=== PATIENT | female | born 1965 | race Caucasian/White ===

== ENCOUNTER 2023-09-23 15:02 | Emergency (ER) | payer OTHER, SELFPAY ==
[2023-09-23 15:09] VITALS: BP 141/83; PULSE 66; RESP 16; TEMP 36.8; O2SAT 96
--- NOTE | 2023-09-23 15:32 | ED.URI ---
HPI - URI/Sore Throat General Chief Complaint: Upper Respiratory Infection Stated Complaint: sore throat Time Seen by Provider: 09/23/23 15:28 Source: patient and RN notes reviewed Mode of arrival: ambulatory Limitations: no limitations History of Present Illness HPI Narrative: 58-year-old female presents with concern for 6 day history of sore throat. Reports her niece had strep throat that she was around recently. She reports she began feeling ear pain and pressure with itching today. Denies nasal congestion or rhinorrhea. Denies fever, body aches, chills, sweats MD elicited complaint: sore throat Related Data Allergies Allergy/AdvReac Type Severity Reaction Status Date / Time No Known Allergies Allergy Verified 09/23/23 15:18 Review of Systems Review of Systems: CONSTITUTIONAL: Denies malaise, chills, sweats, or fever. EYES: Denies visual changes, redness, or discharge. ENT: Denies rhinorrhea, congestion, sinus pain. Reports otalgia and sore throat. CARDIOVASCULAR: Denies chest pain, palpitations, or edema. RESPIRATORY: Denies cough. Denies dyspnea. GASTROINTESTINAL: Denies abdominal pain, nausea, vomiting, diarrhea SKIN: Denies rash or itching. MUSCULOSKELETAL: Denies myalgia. NEUROLOGIC: Denies headache. All systems reviewed & are unremarkable except as noted in HPI and below PMFSH Comments At time of signature, agree with nursing past medical, surgical, social and family history. There is no relevant family history pertinent to the presenting complaint Exam Narrative: GENERAL: Well-appearing, well-nourished, and in no acute distress. HEAD: Normocephalic EYES: PERRLA, conjunctivae clear ENT: Nares clear. Mucous membranes moist. TM yellow dull light reflex bilaterally; no tragal tenderness. Oropharynx erythematous without lesions. Tonsils not enlarged and without exudate, no drooling, no hoarseness, no trismus, uvula midline. NECK: Supple. No lymphadenopathy CHEST: Clear to auscultation, breath sounds equal. No wheezing, rhonchi, rales, or stridor. No respiratory distress, speaks in full sentences. HEART: Regular rate and rhythm. No murmur heard. SKIN: Warm, dry, no rash. NEURO: Alert and oriented x3. PSYCH: Normal mood and affect Course Course Emergency Course: Patient is aware of diagnosis, understands and agrees to treatment plan. Anticipatory guidance given. Patient agrees to follow-up as directed and is aware of reasons to seek care at the emergency department. Portions of this record may have been created with voice recognition software Level of Care: Express Care Visit Vital Signs Vital signs: Vital Signs Temperature 98.2 F 09/23/23 15:09 Pulse Rate 66 09/23/23 15:09 Respiratory Rate 16 09/23/23 15:09 Blood Pressure 141/83 H 09/23/23 15:09 Pulse Oximetry 96 09/23/23 15:09 Oxygen Delivery Room Air 09/23/23 15:09 Temperature 98.2 F 09/23/23 15:09 Pulse Rate 66 09/23/23 15:09 Respiratory Rate 16 09/23/23 15:09 Blood Pressure 141/83 H 09/23/23 15:09 Pulse Oximetry 96 09/23/23 15:09 Oxygen Delivery Room Air 09/23/23 15:09 Reviewed. MDM - URI/Sore Throat MDM Narrative Medical decision making narrative: Differential diagnosis considered: [place]es virus, strep pharyngitis, allergic rhinitis, upper respiratory tract infection, sinusitis, rhinosinusitis, nasopharyngitis. viral pharyngitis, otitis media, otitis externa, pneumonia, bronchitis, viral cough syndrome, viral syndrome, and influenza. Exam findings show no acute concerns or changes; patient is non-toxic appearing and is in no distress. Patient is appropriate for outpatient treatment and follow-up. Lab Data Attestation: I reviewed the patient's lab results. Labs: Strep Screen Positive Group A Strep *(Reference Range: Negative)* Critical Care Time Critical Care Time Critical Care Time: No Discharge Plan Discharge Clinical Im
== END 2023-09-23 15:40 | disposition home or self-care (01) ==
PROVIDERS: Emergency Provider Nurse Practitioner; PCP Nurse Practitioner Family
DX: J02.0 Streptococcal pharyngitis (principal)
CPT/HCPCS: 87880; 99213; G0463

== ENCOUNTER 2024-01-11 14:15 | Emergency (ER) | payer OTHER, SELFPAY ==
[2024-01-11 14:30] VITALS: BP 151/75; PULSE 82; RESP 16; TEMP 36.8; O2SAT 98
--- NOTE | 2024-01-11 14:46 | ED.SKABFB ---
HPI - Skin/Abscess/Foreign Bdy General Chief complaint: Skin/Abscess/Foreign Body Stated complaint: Insect Bite Source: patient Mode of arrival: ambulatory Limitations: no limitations History of Present Illness HPI narrative: 58-year-old female presented for complaint of redness, swelling, and bumps to the left index and middle fingers, left hand, and right upper arm. First noticed the lesion yesterday. Endorses itching. She applied PRID and neosporin. Denies lip, tongue, or throat swelling, shortness of breath or wheezing. Denies changes to soap, detergent, lotion, or any other exposures. No one else in the house or any contacts with similar symptoms. states she thinks a spider bit her. Related Data Allergies Allergy/AdvReac Type Severity Reaction Status Date / Time No Known Allergies Allergy Verified 09/23/23 15:18 Review of Systems Review of Systems: CONSTITUTIONAL: Denies body aches, fever, chills, or sweats. EYES: Denies visual changes, redness, or discharge. ENT: Denies rhinorrhea, congestion CARDIOVASCULAR: Denies chest pain, palpitations, or edema. RESPIRATORY: Denies cough or dyspnea. SKIN: red bumps to left hand and right arm MUSCULOSKELETAL: Denies back pain, joint pain, or myalgia. NEUROLOGIC: Denies numbness, tingling, or weakness. PMFSH Comments At time of signature, I have reviewed and agree with nursing past medical, surgical, social and family history unless otherwise noted. Please see nursing chart for further information. There is no relevant family history pertinent to the presenting complaint Exam Narrative: GENERAL: Well-appearing EYES: conjunctivae clear, and EOMI. ENT: Mucous membranes moist. Oropharynx without edema, erythema or lesions. CHEST: Clear to auscultation. HEART: Regular rate and rhythm. SKIN: Warm, dry. Left 2nd and 3rd digit middle phalanxes with 1 cm erythematous round lesions with papules at center. ulnar aspect of the left hand with 1.5 cm diameter erythematous raised round lesion. No active drainage. Sites were tender. Right upper arm with approx <0.5 cm diameter slightly raised red lesion, no drainage or induration. Full ROM of hands/finger. CMS intact. NEURO: Alert and oriented x3. Course Course Emergency Course: Patient is aware of diagnosis, understands and agrees to treatment plan. Anticipatory guidance given. Patient agrees to follow-up as directed and is aware of reasons to seek care at the emergency department. Portions of this record may have been created with voice recognition software Level of Care: Express Care Visit Vital Signs Vital signs: Vital Signs Temperature 98.3 F 01/11/24 14:30 Pulse Rate 82 01/11/24 14:30 Respiratory Rate 16 01/11/24 14:30 Blood Pressure 151/75 H 01/11/24 14:30 Pulse Oximetry 98 01/11/24 14:30 Oxygen Delivery Room Air 01/11/24 14:30 Temperature 98.3 F 01/11/24 14:30 Pulse Rate 82 01/11/24 14:30 Respiratory Rate 16 01/11/24 14:30 Blood Pressure 151/75 H 01/11/24 14:30 Pulse Oximetry 98 01/11/24 14:30 Oxygen Delivery Room Air 01/11/24 14:30 Reviewed MDM - Skin/Abscess/Foreign Bdy MDM Narrative Medical decision making narrative: Discussed physical exam findings, reviewed Rxs. Advised supportive measures and signs/symptoms to go to the ER. Pt is appropriate for outpt treatment and f/u. Instructed patient to go to nearest ER immediately for any worsening symptoms including but not limited to: fever, spreading rash, pain, sore throat, headache, dizziness, chest pain, trouble breathing, or any symptoms concerning to the patient. Differential Diagnosis Differential diagnosis: Likely abscess of skin or subcutaneous tissue, viral exanthem, dermatophytosis, urticaria, herpes zoster, allergic reaction to drug, cellulitis, eczema, insect bites, impetigo and contact dermatitis Discharge Plan Discharge Clinical Impression: Dermatitis Patient Disposition: [facility]
== END 2024-01-11 14:53 | disposition home or self-care (01) ==
PROVIDERS: Emergency Provider Nurse Practitioner Family
DX: L30.9 Dermatitis, unspecified (principal); K76.0 Fatty (change of) liver, not elsewhere classified
CPT/HCPCS: 99213; G0463

== ENCOUNTER 2024-04-10 14:35 | Emergency (ER) | payer OTHER, SELFPAY ==
[2024-04-10 14:40] VITALS: BP 137/80; PULSE 83; RESP 18; TEMP 37.2; O2SAT 100
--- NOTE | 2024-04-10 14:54 | ED.WOUNDLAC ---
HPI - Wound/Laceration General Chief Complaint: Wound/Laceration Stated Complaint: Skin Sore/Right Leg History of Present Illness HPI narrative: Patient presents with redness and irritation to her right lower extremity. Patient states this started out as to insect bites which she thinks she has scratched and now she is concerned for infection. Related Data Allergies Allergy/AdvReac Type Severity Reaction Status Date / Time No Known Allergies Allergy Verified 04/10/24 14:53 Review of Systems Review of Systems: CONSTITUTIONAL: Denies fever, chills, or sweats. EYES: Denies visual changes, redness, or discharge. ENT: Denies rhinorrhea, congestion, sore throat, or otalgia. CARDIOVASCULAR: Denies chest pain, palpitations, or edema. RESPIRATORY: Denies cough or dyspnea. GASTROINTESTINAL: Denies abdominal pain, nausea, vomiting, or diarrhea. GENITOURINARY: Denies dysuria or hematuria. SKIN: Denies rash or itching. MUSCULOSKELETAL: Denies back pain, joint pain, or myalgia. NEUROLOGIC: Denies headache, numbness, or weakness. PSYCHIATRIC: Denies anxiety or depression. PMFSH Comments At time of signature, agree with nursing past medical, surgical, social and family history. There is no relevant family history pertinent to the presenting complaint Exam Narrative: GENERAL: Well-appearing, well-nourished, and in no acute distress. HEAD: Normocephalic, atraumatic. EYES: PERRLA and EOMI. ENT: Nares clear, no rhinorrhea or epistaxis. Mucous membranes moist. NECK: Supple. CHEST: Clear to auscultation. No respiratory distress. HEART: Regular rate and rhythm. No murmur heard. Normal peripheral pulses. ABDOMEN: Soft, nontender, nondistended, normal active bowel sounds. EXTREMITIES: Normal range of motion. No edema.Lower extremity: RIGHT HIP EXAM - SKIN INTACT. NO BRUISING, REDNESS OR SWELLING. NO INGUINAL MASSES OR LYMPHADENOPATHY. GENERALIZED FEMUR AND HIP TENDERNESS. PATIENT HOLDING HIP IN EXTERNAL ROTATION WITH SLIGHT FLEXION OF KNEE. NO BUTTOCK OR SI JOINT TENDERNESS. ROM LIMITED DUE TO PAIN. NORMAL FEMORAL PULSES. BACK EXAM - NO VERTEBRAL POINT SPECIFIC TENDERNESS OR STEP OFFS. NORMAL ROM OF BACK. NORMAL FLEXION AND EXTENSION OF BACK. NO CVA TENDERNESS. LEG EXAM - NO CALF OR ANKLE SWELLING, DISCOLORATION. NORMAL FOOT SENSATION AND CAP REFILL. NORMAL DP PULSE. . 8x9 area of redness consisternt with cellullitis to right lower leg 2 puncture wounds to center consistent with insect bites. SKIN: Warm, dry, no rash. NEURO: No focal deficits. Alert and oriented x3. Parker Coma Scale Eye Opening: Spontaneous 4 [place] Coma Scale Motor: Obeys Commands 6 Parker Coma Scale Verbal: Oriented 5 [place] Coma Scale Total 15 Course Course Level of Care: Express Care Visit Vital Signs Vital signs: Vital Signs Temperature 37.2 C 04/10/24 14:40 Pulse Rate 83 04/10/24 14:40 Respiratory Rate 18 04/10/24 14:40 Blood Pressure 137/80 04/10/24 14:40 Pulse Oximetry 100 04/10/24 14:40 Oxygen Delivery Room Air 04/10/24 14:40 Temperature 37.2 C 04/10/24 14:40 Pulse Rate 83 04/10/24 14:40 Respiratory Rate 18 04/10/24 14:40 Blood Pressure 137/80 04/10/24 14:40 Pulse Oximetry 100 04/10/24 14:40 Oxygen Delivery Room Air 04/10/24 14:40 Please PAPI schedule a followup visit with your personal physician for further evaluation and treatment. Including recheck and discussion of your blood pressure. If your symptoms persist, change or worsen significantly before you can contact your personal physician then please, without delay, go to the emergency department for further evaluation Discharge Plan Discharge Clinical Impression: Insect bite, Cellulitis Patient Disposition: Home, Self-Care Condition: Stable Instructions: Antibiotic Form, Insect Bite or Sting (ED) Additional Instructions: monitor area for increase in size, streaking or drainage wash area with warm soapy water two times daily follow
== END 2024-04-10 15:00 | disposition home or self-care (01) ==
PROVIDERS: Emergency Provider Nurse Practitioner Family; PCP Nurse Practitioner Family
DX: S80.861A Insect bite (nonvenomous), right lower leg, initial encounter (principal); L03.115 Cellulitis of right lower limb; W57.XXXA Bitten or stung by nonvenomous insect and other nonvenomous arthropods, initial encounter
CPT/HCPCS: 99213; G0463

== ENCOUNTER 2025-03-02 10:18 | Emergency (ER) | payer OTHER, SELFPAY ==
--- NOTE | ~2025-03-02 | XR_ITS ---
EXAMINATION: XR chest 2V 03/02/2025 11:30 INDICATION: Cough PROCEDURE: 2 view chest COMPARISON: No prior studies for comparison. FINDINGS: The lungs are clear. The cardiomediastinal silhouette is within normal limits. There are no pleural effusions. There is no pneumothorax suspected. IMPRESSION: 1: NO ACUTE CARDIOPULMONARY DISEASE. Reviewed, dictated and finalized at location A.
--- OUTSIDE RECORDS SUMMARY | 2025-03-02 10:25 | XMS_ITS | Encounter Summary ---
Author Organization [facility] Address [address] [place] [id number] Care Team Providers Care Shredder Picker Name Role Phone [facility] Primary Care Provider + Encounter Details Date Type Department Care Team (Late st Contact Info) Description 05/13/2024 [employer] Message Enc [facility] Family & Internal Medicine [facility] [id number] [place] [phone] Rishi, [facility] Provider salvador Social History Tobacco Use Types Packs/Day Years Used Date Smoking Tobacco: Never Passive Smoke Exposure: Never Smokeless Tobacco: Never Alcohol Use Standard Drinks/Week Comments Yes 4 (1 standard drink = 0.6 oz pur e alcohol) occasionally PHQ-2 Answer Date Recorded Patient Health Questionnaire-2 Score 0 03/16/2024 Comments No Sex and Gender Information Value Date Recorded Sex Assigned at Not on file Legal Sex Female 8:31 PM CDT Gender Identity Not on file Sexual Orientation Not on file documented as of this encounter Plan of Treatment Not on file documented as of this encounter Visit Diagnoses Not on filedocumented in this encounter Additional Health Concerns Assessment Noted Time PHQ-9 Depression Total Score: 7 03/16/20 24 2:24 PM CDT documented as of this encounter Care Teams Shredder Picker Relationship Specialty Start Date End Date Yesenia Reyna FNP-BC [id number] [facility], [address] [place] [address] PCP - General Nurse Practitioner Family 08/07/23 documented as of this encounter
--- OUTSIDE RECORDS SUMMARY | 2025-03-02 10:25 | XMS_ITS | Encounter Summary ---
Author Organization [facility] Address [address] [place] [address] Care Team Providers Care Paid Internship Name Role Phone Yesenia Reyna Primary Care Provider + Encounter Details Date Type Department Care Team (Late st Contact Info) Description 04/19/2024 [employer] Message Enc [facility] Medical [facility] Family & Internal Medicine [address] [phone] Yesenia Reyna FNP-BC [id number] [place] [address] [address] [place] [address] Foot infection Social History Tobacco Use Types Packs/Day Years [...] on file documented as of this encounter Progress Notes * DONIS Mcdermott - 04/19/2024 11:35 AM CDT Try taking the doxycycline with crackers to see if this is better tolerated. I would recommend still elevating her foot at much as possible. She could try OTC benadryl to see if this helps with some of the inflammation (and itching if present) since this was thought to be from a spider bite. I would recommend she be reevaluated in the walk-in or appointment with me tomorrow to look at it. It is hard to accurately treat without seeing it. * Aviva Webber MA - 04/19/2024 11:00 AM CDT Please advise documented in this encounter Plan of Treatment Not on file documented as of this encounter Visit Diagnoses Not on filedocumented in this encounter Additional Health Concerns Assessment Noted Time PHQ-9 Depression Total Score: 7 03/16/20 24 2:24 PM CDT documented as of this encounter Care Teams Paid Internship Relationship Specialty Start Date End Date Yesenia Reyna FNP-BC [id number], [address] [place] [address] PCP - General Nurse Practitioner Family 08/07/23 documented as of this encounter
--- OUTSIDE RECORDS SUMMARY | 2025-03-02 10:25 | XMS_ITS | Clinical Summary ---
Author Organization [facility] Address Formerly [facility], [facility] [place] [address] Care Team Providers Care Marketing And Promotions Manager Name Role Phone Manuela Perez Alissa [facility] Primary Care Provider + Allergies Active Allergy Reactions Criticality Noted Date Comments Latex Rash Low 11/17/2018 Medications Cholecalciferol (VITAMIN D) 2000 units Tab Activ e Cinnamon 500 MG Tab Take by mouth daily. 6 Active Garlic 10 MG Cap Active Juan, Zingiber officinalis, (JUAN EXTRACT) 250 MG Cap 6 Active multi vitamin/mineral s (MULTI-VITAMIN DAILY) tablet Take 1 tablet by mouth daily. 4 Active vitamin E 400 UNIT capsule Active Turmeric 450 MG Cap Take by mouth daily. 6 Active ibuprofen 200 MG tablet Take 1 tablet (200 mg total) by mouth every 6 (six) hours as needed for Pain. Active B complex-C Cap capsule Take 1 capsule by mouth daily. Active B IJSMPAX-O-VROYA ACID ER OR 3 Active Misc Natural Products (GINSENG COMPLEX OR) 3 Active Milk Thistle 250 MG Cap 3 Active Ginkgo Biloba Extract (GNP GINGKO BILOBA EXTRACT) 60 MG Cap 3 Active Biotin (BIOTIN 5000) 5 MG Cap 3 Active CPAP DEVICE, DME,Indications :Obstructive sleep apnea syndrome 1 Device by Does not apply route nightly. 1 Device 4 Active triamcinolone (KENALOG) 0.1 % cream Apply topically 2 (two) times daily. 4 Active aspirin 81 MG chewable tablet Chew 1 tablet (81 mg total) by mouth daily. Takes at night Active semaglutide-nestor ght management (WEGOVY) 0.25 mg/dose injection (PEN)Indication s:Weight Loss Inject 0.25 mg into the skin once a week. Indications: Weight Loss 2 mL 2 Active cephALEXin (KEFLEX) 500 MG capsule take 1 capsule by mouth every 8 hours for 7 days 4 Active Active Problems Problem Noted Date Diagnosed Date Bilateral chronic knee pain 12/17/2023 Assessment & Plan (12/17/2023 9:01 PM ONLINE ADVERTISING ANALYST): 09/2023 X-ray Rt knee - No apparent acute fracture or dislocation. Lesion in the medial femoral condyle could be consistent with osteochondral injury. Could be further evaluated with MRI if clinically indicated. 09/2023 PT improvement pain. Class 2 severe obesity due t o excess calories with serious comorbidity and body mass index (BMI) of 37.0 to 37.9 in adult 12/17/2023 Obstructive sleep apnea syndrome 12/17/2023 Assessment & Plan (12/17/2023 9:04 PM ONLINE ADVERTISING ANALYST): 09/2023 home sleep study - moderate KEVIN, AHI 21.7/hr, ave sat 93%, HR 54; 11/2023 titration study - Some sleep onset central apneas were noted as pressures increased. There was minimal sleep time at the final pressure and it is unsure if the pressure would be completely optimal. I recommend initiation of CPAP therapy at home with settings of 5.0 cm - 20.0 cm h2O with heated humidity. Pending cpap device Chronic pain of right hip 09/23/2023 Assessment & Plan (12/17/2023 9:00 PM ONLINE ADVERTISING ANALYST): 09/2023 x-ray No appreciable acute fracture or dislocation. Calcifications along the lateral aspect of the right femoral greater trochanters suggesting chronic calcific tendinosis. Arthritis 09/16/2023 BMI 37.0-37.9, adult 05/02/2016 Chronic GERD 05/02/2016 Elevated blood pressure read ing without diagnosis of hypertension 04/25/2016 Assessment & Plan (12/17/2023 8:56 PM ONLINE ADVERTISING ANALYST): 12/17/23 Stable off medications. Fatty liver 04/25/2016 Assessment & Plan (12/17/2023 8:59 PM ONLINE ADVERTISING ANALYST): 10/22/23 abd US - Mild fatty infiltration of the liver without focal mass. Hepatic and portal veins are patent.. Common bile duct measures.3.4 mm. Fib-4 1.26 (SALVATORE 0- 1) not advanced Diverticulosis of colon 11/23/2012 Resolved Problems Problem Noted Date Diagnosed Date Resolved Date Prolapsed urethral mucosa 06/23/2022 Bug bite with infection 04/25/201602/2023 Diverticulitis of colon 08/24/201211/20 Encounter for preventive health examination 06/03/2012 06/29/2020 Immunizations Immunization Administration Dates Next Due Fluzone 6 Months+ Quad (0.5 mL Prefilled Syringe ) 11/17/2018 Tdap (Generic) 08/13/2016 Family History Medical History Relation Comments Arthritis Father Cancer Father skin Diabetes Father Hyperlipidemia Father Hypertension Father Breast Cancer Maternal Aunt 1 Breast Cancer Maternal Aunt 2 Heart Disease Maternal Grandfather Macular Degeneration Maternal Grandfather Cancer Mother colon Stroke Mother Cancer Paternal Grandfather lung Cancer Paternal Grandmother uterine Relation Status Comments Father Maternal Aunt 1 Maternal Aunt 2 Maternal Grandfather Mother Paternal Grandfather Paternal Grandmother Social History Tobacco Use Types Packs/Day Years Used Date Smoking Tobacco: Never Passive Smoke Exposure: Never Smokeless Tobacco: Never Tobacco Cessation:Counseling Given: No Alcohol Use Standard Drinks/Week Comments Yes 4 (1 standard drink = 0.6 oz pur e alcohol) occasionally PHQ-2 Answer Date Recorded Patient Health Questionnaire-2 Score 0 03/16/2024 Comments No Sex and Gender Information Value Date Recorded Sex Assigned at Not on file Legal Sex Female 8:31 PM CDT Gender Identity Not on file Sexual Orientation Not on file Last Filed Vital Signs Vital Sign Reading Time Taken Comments Blood Pressure 120/83 04/14/2024 1:21 PM CDT Pulse 72 04/14/2024 1:21 PM CDT Temperature 36.5 C (97.7 F) 04/14/2024 1:21 PM CDT Respiratory Rate 16 04/14/2024 1:21 PM CDT Oxygen Saturation 98% 04/14/2024 1:21 PM CDT Inhaled Oxygen Concentration - - Weight 99.2 kg (218 lb 9.6 oz) 04/14/2024 1:21 P M CDT Height 165.1 cm (5' 5 ) 04/14/2024 1:21 PM CDT Body Mass Index 36.38 04/14/2024 1:21 PM CDT Plan of Treatment Health Maintenance Due Date Last Done Comments Annual Physical 01/21/1967 Cervical Cancer Screening Pap with HPV Testing (Age 30 to 64) Every 5 Years 01/21/1994 Pneumococcal Vaccine: 50+ Years (1 of 1 - PCV) 01/21/2014 Zoster Vaccines (1 of 2) 01/21/2014 Cervical Cancer Screening Pap Smear (Age 30 to 64) Every 3 Years 01/29/2019 01/30/2016 Cervical Cancer Screening with HPV 01/29/2019 RSV Immunization or 60+ Years (1 - Risk 60-74 years 1-dose series) 2024 COVID-19 Vaccine (1 - season) 2024 PHQ-2 (Physician [place]) 10/19/2024 03/16/2024 Mammogram Screening 07/28/2026 07/28/2024, 08/10/2023, 07/27/2023, Additional history exists DTaP, Tdap and Td Vaccines (2 - Td or Tdap) 08/13/2026 08/13/2016 Colorectal Cancer Screening Colonoscopy (10 Years) 03/23/2027 03/23/2017 Hepatitis C Completed 07/16/2010 Meningococcal B Vaccine Aged Out No l onger eligible based on patient's age to complete this topic Meningococcal Vaccine Aged Out No xochilt markel eligible based on patient's age to complete this topic RSV Immunizations Under 20 Months Aged Out No longer eligible based on patient's age to complete this topic Procedures Procedure Name Priority Date/Time Associated Diagnosis Comments MG SCREENING W NOEMÍ EVELYN DIGI Routine 07/28/2024 8:29 AM CDT Screening mammogram, encounter for COLONOSCOPY Routine 03/23/2017 12:00 AM CDT OUTSIDE CYTOPATH CERV/VAG INTERPRET (PAP) (SCAN ORDER) Routine 01/30/2016 12:00 AM CDT HEP C SCANNED ORDERS Routine 07/16/2010 from Last 3 Months or Most Recently Relevant to Health Maintenance Results * MG SCREENING W NOEMÍ EVELYN DIGI (07/28/2024 8:29 AM CDT) Anatomical Region Laterality Modality Breast Bilateral Mammography 07/28/2024 9:20 AM CDT Impressions 07/28/2024 9:28 AM CDT ===== IMPRESSION: ===== 1. Stable mammographic appearance with no new findings to suggest malignancy in either breast. Assessment: ACR BI-RADS 2 - BENIGN FINDING(S) Recommendation: 1:Routine Screening Bilateral Comments: Ordered By: MANUELA PEREZ Interpreted By: Agatha Escalante, 07/28/2024 9:20 AM Narrative 07/28/2024 9:28 [place] [address] EXAMINATION: Digital bilateral screening mammogram with 3-D tomosynthesis EXAM DATE/TIME: 07/28/2024 7:49 AM REASON FOR EXAM: routine Benign right breast biopsy in 2009. Maternal aunt with breast carcinoma COMPARISON: 07/27/2023. June 02, 2022 Technique: Digital screening mammography of both breasts was performed in addition to 3-D Tomosynthesis technique. This study was read with the assistance of a computer-aided detection system. Tissue density: There are scattered areas of fibroglandular density. Findings: Slight interval growth of prior ultrasound proven cyst within the approximate 3:30 o'clock position of the left breast. 8 cm from the nipple.. There is no new focal asymmetry, dominant mass lesion, area of skin thickening, or cluster of suspicious appearing calcifications in either breast to suggest malignancy. us aMnuela Perez [employer] MAMMO Final Re sult * Colonoscopy (03/23/2017 12:00 AM CDT) 03/23/2017 03/23/2017 Narrative [facility] TO EPIC CONVERSION - 03/23/2017 12:00 AM CDT Documented hx of procedure Procedure Note Virginia Nichols MD - 08/22/2018 Documented hx of procedure us Generic Conversion Md NICHOLS GI PROCEDURE ORDERABLES Final Result [facility] TO EPIC CONVERSION * PAP SMEAR (01/30/2016 12:00 AM CDT) 01/30/2016 us Documents Scanned SCANNING Final Result Performing Organization Address [facility] Co de Phone Number JOE LAKHANI * HEP C SCANNED ORDERS (07/16/2010) us Doc [facility] Scanned SCANNING Final Resu lt Performing Organization Address [facility]/ZIP Co de Phone Number JOE LAKHANI from Last 3 Months or Most Recently Relevant to Health Maintenance Insurance Care Teams Marketing And Promotions Manager Relationship Specialty Start Date End Date Manuela Perez, [employer] [address], [address] [place] [id number] PCP - General Nurse Practitioner Family 08/07/23
--- OUTSIDE RECORDS SUMMARY | 2025-03-02 10:25 | XMS_ITS | Encounter Summary ---
Author Organization [facility] Address [address] [place] [id number] Care Team Providers Care Pmo Analyst Name Role Phone Haleigh Bolton SYSTEMS PROGRAMMER Primary Care Provider Jigna Huynh [facility] Primary Care Provider + Yesenia Reyna [facility] Primary Care Provider + Encounter Details Date Type Department Care Team (Latest Contact Info) Description 08/24/2018 Abstract [facility] , Virginia Gamboa MD Social History Tobacco Use Types Packs/Day Years Used Date Smoking Tobacco: Never Assessed Comments Unknown Sex and Gender Information Value Date Recorded Sex Assigned at Not on file Legal Sex Female 8:31 PM CDT Gender Identity Not on file Sexual Orientation Not on file documented as of this encounter Plan of Treatment Not on file documented as of this encounter Visit Diagnoses Not on filedocumented in this encounter Care Teams Pmo Analyst Relationship Specialty Start Date End Date Haleigh Bolton NP PCP - General Nurse Practitioner Family 11/17/18 06/21/[address] [facility] PCP - General Nurse Practitioner Family [facility]22[facility] [id number], [address] [place] [address] PCP - General Nurse Practitioner Family 08/07/23 documented as of this encounter
[2025-03-02 10:29] VITALS: BP 140/84; PULSE 82; RESP 20; TEMP 36.5; O2SAT 97
--- NOTE | 2025-03-02 11:20 | ED_ITS ---
HPI - URI/Sore Throat General Chief Complaint: Upper Respiratory Infection Stated Complaint: cough Time Seen by Provider: 03/02/25 11:10 Source: patient Mode of arrival: ambulatory Limitations: no limitations History of Present Illness HPI Narrative: 60-year-old female presents Express Care complaining of cough, congestion if for 10 days. Patient denies any fevers, body aches, chills. Patient states the cough is getting worse she started to the cough of yellow and white sputum. Patient also reports she is developing more congestion and sinus pressure he feels congested in her chest. Patient states she feels a congestion or chest when she takes a deep breath. Patient denies any significant past medical history. Patient denies any other upper respiratory symptoms. Related Data Allergies Allergy/AdvReac Type Severity Reaction Status Date / Time No Known Allergies Allergy Verified 04/10/24 14:53 Review of Systems Review of Systems: CONSTITUTIONAL: Denies fever, chills, body aches, or sweats. EYES: Denies visual changes, redness, or discharge. ENT: Negative for rhinorrhea, sore throat, otalgia. Positive for congestion CARDIOVASCULAR: Denies chest pain, palpitations, or edema. RESPIRATORY: Positive for cough and chest congestion. Negative for dyspnea. GASTROINTESTINAL: Denies abdominal pain, nausea, vomiting, or diarrhea. GENITOURINARY: Denies dysuria or hematuria. SKIN: Denies rash or itching. MUSCULOSKELETAL: Denies back pain, joint pain, or myalgia. NEUROLOGIC: Denies headache, numbness, or weakness. PSYCHIATRIC: Denies anxiety or depression. All other systems reviewed are negative, except as documented in HPI. PMFSH Comments At the time of my signature, I reviewed and agree with the nursing past medical, surgical, social, and family history. There is no relevant family history pertinent to the patient complaint. Exam Narrative: GENERAL: This is a well-nourished, well-developed adult, in no apparent distress. They are non ill-appearing, nontoxic appearing. HEAD: normocephalic, atraumatic. EYES: Sclera clear/white. Vision is grossly intact. Conjunctiva normal bilaterally. Extraocular movements intact. EARS: External ears normal, auditory canals clear and without drainage, TMs without erythema or perforation. Hearing grossly intact. NOSE: External nose normal with no obvious nasal discharge, nasal turbinates erythematous, no rhinorrhea. THROAT: Mucous membranes moist, posterior pharynx without redness or swelling. No exudate Uvula is midline. Postnasal drip present. NECK: Neck supple, non-tender without lymphadenopathy, masses or thyromegaly. CARDIOVASCULAR: Regular rate and rhythm without murmurs, gallops, or rubs. RESPIRATORY: Inspiratory wheezing in the left lung. Crackles present to the left lower lobe.. Breath sounds equal bilaterally. No rhonchi. SKIN: warm, Dry, intact with no suspicious lesions or rash, good texture and turgor. NEURO: awake, alert, and oriented to person, place and time. There were no obvious focal neurologic abnormalities. EXTREMITIES: No joint tenderness, effusion, or edema noted. BACK: Nontender without deformity. Course Course Emergency Course: Portions of this record may have been created with voice recognition software Level of Care: Express Care Visit Vital Signs Vital signs: Vital Signs Temperature 97.7 F 03/02/25 10:29 Pulse Rate 82 03/02/25 10:29 Respiratory Rate 20 03/02/25 10:29 Blood Pressure 140/84 03/02/25 10:29 Pulse Oximetry 97 03/02/25 10:29 Oxygen Delivery Room Air 03/02/25 10:29 Temperature 97.7 F 03/02/25 10:29 Pulse Rate 82 03/02/25 10:29 Respiratory Rate 20 03/02/25 10:29 Blood Pressure 140/84 03/02/25 10:29 Pulse Oximetry 97 03/02/25 10:29 Oxygen Delivery Room Air 03/02/25 10:29 MDM - URI/Sore Throat MDM Narrative Medical decision making narrative: Chest x-ray negative for any evidence of pneumonia or acute findings. Patient was given a DuoNeb treatment and reports her symptoms are better. Repeat auscultation with resolution of wheezing. Given length of symptoms exam findings is likely the patient developed a sinusitis along with bronchitis. Patient denies smoking but states that her smokes and she had secondhand smoke frequently. Will give patient Augmentin and prednisone. Will prescribe patient albuterol inhaler as needed for shortness of breath or wheezing. Discussed physical exam findings. Advised supportive measures and signs/symptoms to go to the ER. Pt is appropriate for outpt treatment and f/u. Differential Diagnosis Differential diagnosis: Likely upper respiratory infection, sinusitis, bronchitis and other (Pneumonia) Imaging Data Radiologist's impression: ITS Impressions Chest X-Ray 03/02/25 11:38 IMPRESSION: 1: NO ACUTE CARDIOPULMONARY DISEASE. Discharge Plan Discharge Clinical Impression: Bronchitis Sinusitis Qualifiers: Sinusitis location: unspecified location Chronicity: acute Recurrence: non- recurrent Qualified Code(s): J01.90 - Acute sinusitis, unspecified Patient Disposition: Home Condition: Stable Instructions: Antibiotic Form, Sinusitis (ED), Acute Bronchitis (ED) Additional Instructions: Your chest x-ray was negative for any evidence of pneumonia or acute findings. There were given a DuoNeb treatment today for your wheezing. Is likely you have developed a bacterial sinus infection along with bronchitis given your symptoms. Take the antibiotics as directed and complete the course even if you start to feel better. Take the prednisone as directed. Take it in the morning and with food. Use the albuterol inhaler as needed for shortness of breath or wheezing. You may use a Neti pot saline rinse 3 times a day with lukewarm distilled water Take Tessalon Perles as needed for cough. Continue to take Tylenol or Motrin for pain. Use a humidifier or vaporizer at night. Drink plenty of water. 8-10 glasses per day. Use flonase 2 times per day for 5 days then as needed Take mucinex 2 times per day and be sure to take with 8oz of water. Follow up with Primary provider in 3-5 days Please go to the ER if he develops any difficulty breathing, fevers, worsening symptoms, or any other concerns Patient Language: Lithuanian Prescriptions: New prednisone 20 mg tablet 40 mg PO DAILY 5 Days Qty: 10 0RF benzonatate 100 mg capsule 100 mg PO TID PRN (Reason: cough) Qty: 20 0RF albuterol sulfate [Ventolin HFA] 90 mcg/actuation HFA aerosol inhaler 2 puff inhalation QID PRN (Reason: shortness of breath or wheezing) Qty: 8.5 0RF amoxicillin-pot clavulanate 875-125 mg tablet 1 tablet PO Q12H 7 Days Qty: 14 0RF No Action triamcinolone acetonide 0.1 % cream 1 applic TOPICAL BID 5 Days Qty: 28.4 0RF cephalexin 500 mg capsule 500 mg PO Q8H 7 Days Qty: 21 0RF Follow-up/Referrals: Maribell,Yesenia Meneses APRN [Primary Care Provider] - Time of Disposition: 12:05
[2025-03-02] MEDS: IPRATROPIUM 0.5 MG/ALBUTEROL SULFATE 2.5 MG AMPUL.NEB 3 ML INHALATION (11:59)
== END 2025-03-02 12:10 | disposition home or self-care (01) ==
PROVIDERS: PCP Nurse Practitioner Family
DX: J40 Bronchitis, not specified as acute or chronic (principal); J01.90 Acute sinusitis, unspecified
CPT/HCPCS: 71046; 94640; 99213; G0463